=== PATIENT | female | born 1990 | race Hispanic/Latino ===

== ENCOUNTER 2019-12-28 08:52 | Inpatient (IN) | payer OTHER ==
[2019-12-28] MEDS: Lactated Ringer's 1,000 ML IV SCH ×4 (09:30→21:20)
[2019-12-28] MEDS ORDERED: Hydrocortisone Sod Succ/PF 100 mg/2 ml Vial IVP SCH (09:30)
[2019-12-28] MEDS ORDERED: Promethazine HCl 25 MG/ML VIAL IM PRN ×3 (09:38→23:05)
[2019-12-28] MEDS ORDERED: Butorphanol Tartrate 1 MG/ML VIAL SLOW IVP PRN (09:38)
[2019-12-28] MEDS ORDERED: Diphenoxylate HCl/Atropine Tablet PO PRN ×2 (09:38)
[2019-12-28] MEDS ORDERED: NS / Oxytocin 40 units/1000ml 1,000 ML IV PRN (09:38)
[2019-12-28] MEDS ORDERED: Lidocaine 1% (PF) 30 ML VIAL SC PRN (09:38)
[2019-12-28] MEDS ORDERED: Acetaminophen 500 MG TAB PO PRN (09:38)
[2019-12-28] MEDS ORDERED: Ondansetron PF 4 MG/2 ML Vial IVP PRN ×4 (09:38→23:17)
[2019-12-28] MEDS ORDERED: NS w/ Oxytocin 10 units 500 ML IV SCH ×2 (09:38)
[2019-12-28] MEDS ORDERED: Docusate 100 MG CAP PO PRN (09:38)
[2019-12-28] MEDS ORDERED: HYDROcodone/Acetaminophen 5/325 mg Tablet PO PRN ×4 (09:38→23:17)
[2019-12-28] MEDS ORDERED: Misoprostol 200 MCG TAB PR PRN ×2 (09:38→23:17)
[2019-12-28] MEDS ORDERED: Ibuprofen 800 MG TAB PO PRN (09:38)
[2019-12-28] MEDS ORDERED: hydrALAZINE 20 MG/ML VIAL SLOW IVP PRN ×2 (09:38→23:17)
[2019-12-28 09:55] LABS: Hemoglobin 12.7 g/dL (12.0-16.0); Mean Corpuscular HGB CONC 34.6 g/dL (32.0-36.0); Mean Corpuscular Hemoglobin 29.4 pg (27.0-31.0); Mean Platelet Volume 10.2 fL (7.4-10.4); Platelet Count 204 thou/uL (130-400); Red Blood Cell (RBC) Count 4.32 mill/uL (4.20-5.40); White Blood Cell (WBC) Count 10.1 thou/uL (4.8-10.8)
[2019-12-28 10:38] LABS: HBSAg Index 0.19 S/CO (0-0.99); Hep B Surf Ag Non-Reactive S/CO (NonReactive); Syphilis Antibody Nonreactive (Nonreactive); Syphilis Antibody Index 0.03 S/CO (<1.00 Non-Reactive)
[2019-12-28] MEDS: Fentanyl 4 mcg/Bup 0.1% Cadd 100 ML ONE ×2 (10:50→18:30)
[2019-12-28] MEDS ORDERED: EPHEDRINE 25 MG/5 ML SYRINGE SLOW IVP PRN (11:32)
[2019-12-28] MEDS ORDERED: Acetaminophen 325 MG TAB PO PRN ×2 (11:32→23:17)
[2019-12-28] MEDS ORDERED: Naloxone HCl 0.4 mg/ml Vial IVP PRN ×4 (11:32→23:05)
[2019-12-28] MEDS ORDERED: diphenhydrAMINE 50 MG/ML VIAL IVP PRN ×2 (11:32→23:05)
[2019-12-28] MEDS ORDERED: Lactated Ringer's 500 ML IV PRN (11:32)
[2019-12-28] MEDS ORDERED: Communication Order-Pharmacy FS SCH ×2 (11:45→23:15)
[2019-12-28] MEDS ORDERED: methylPREDNISolone Sod Succ/PF 125 MG/2 ML VIAL ONE (12:46)
[2019-12-28] MEDS ORDERED: Hydrocortisone Sod Succ/PF 100 mg/2 ml Vial ONE (12:53)
[2019-12-28 13:20] VITALS: BMI 40.0
[2019-12-28] MEDS ORDERED: Fentanyl 4 mcg/Bup 0.1% Cadd 100 ML ONE (18:00)
[2019-12-28] MEDS ORDERED: NS / Oxytocin 40 units/1000ml 1,000 ML ONE (19:01)
[2019-12-28] MEDS ORDERED: Lidocaine 1% (PF) 30 ML VIAL ONE (19:01)
[2019-12-28] MEDS ORDERED: Carboprost 250 MCG/ML AMP ONE (19:15)
[2019-12-28] MEDS ORDERED: Methylergonovine 0.2 MG/ML VIAL ONE (19:15)
[2019-12-28] MEDS ORDERED: Bicitra 30 ML UDCUP ONE (22:02)
[2019-12-28] MEDS ORDERED: Azithromycin 500 MG VIAL ONE (22:02)
[2019-12-28] MEDS ORDERED: Lidocaine 2% 10 ML INJ ONE (22:06)
[2019-12-28] MEDS ORDERED: Oxytocin 10 UNITS/ML VIAL ONE (22:11)
[2019-12-28] MEDS ORDERED: Bupivacaine PF 0.5% 30 ML VIAL ONE (22:11)
[2019-12-28] MEDS ORDERED: EPHEDRINE 25 MG/5 ML SYRINGE ONE (22:23)
[2019-12-28] MEDS ORDERED: PHENYLEPHRINE-NS 100 MCG/ML 10 ML SYRINGE ONE (22:24)
[2019-12-28] MEDS ORDERED: Fentanyl 100 MCG/2 ML VIAL ONE (22:30)
[2019-12-28] MEDS ORDERED: Meperidine HCl/PF 25 MG/ML VIAL SLOW IVP PRN (23:05)
[2019-12-28] MEDS ORDERED: Ondansetron HCl/PF 4 MG/2 ML Vial IVP PRN (23:05)
[2019-12-28] MEDS ORDERED: Promethazine HCl 25 MG SUPP PR PRN (23:05)
[2019-12-28] MEDS ORDERED: L&D-Morphine 4 MG/ML VIAL SLOW IVP PRN (23:05)
[2019-12-28] MEDS ORDERED: Naloxone HCl 0.4 mg/ml Vial IV PRN (23:05)
[2019-12-28] MEDS ORDERED: HYDROmorphone 2 MG/ML VIAL SLOW IVP PRN (23:05)
[2019-12-28] MEDS ORDERED: Ketorolac Tromethamine 30 MG/ML VIAL IVP SCH (23:15)
[2019-12-28] MEDS ORDERED: Simethicone Chewable 80 MG TAB PO PRN (23:17)
[2019-12-28] MEDS ORDERED: Lanolin Ointment 7 GM TUBE TOP PRN (23:17)
[2019-12-28] MEDS ORDERED: Meperidine HCl/PF 25 MG/ML VIAL IM PRN (23:17)
[2019-12-28] MEDS ORDERED: Zolpidem Tartrate 5 MG TAB PO PRN (23:17)
[2019-12-28] MEDS ORDERED: diphenhydrAMINE 25 MG CAP PO PRN (23:17)
[2019-12-28] MEDS ORDERED: Bisacodyl 10 MG SUPP PR PRN (23:17)
[2019-12-28] MEDS ORDERED: NS / Oxytocin 40 units/1000ml 1,000 ML IV SCH (23:30)
[2019-12-28] MEDS ORDERED: Meperidine HCl/PF 25 MG/ML VIAL ONE (23:38)
[2019-12-29] MEDS ORDERED: Ketamine 50 MG/ML (10ML VIAL) ONE (01:14)
[2019-12-29] MEDS ORDERED: Ketorolac Tromethamine 30 MG/ML VIAL ONE (01:14)
[2019-12-29] MEDS: Ketorolac Tromethamine 30 MG/ML VIAL IVP PRN ×3 (01:16→13:40)
[2019-12-29] MEDS: Lactated Ringer's 1,000 ML IV SCH ×4 (01:17→14:34)
[2019-12-29 06:29] LABS: Hemoglobin 10.3 g/dL (12.0-16.0); Mean Corpuscular HGB CONC 34.1 g/dL (32.0-36.0); Mean Corpuscular Hemoglobin 29.1 pg (27.0-31.0); Mean Corpuscular Volume 85.3 fL (78.0-98.0); Platelet Count 172 thou/uL (130-400); RBC Distribution Width 13.2 % (11.5-14.5); Red Blood Cell (RBC) Count 3.53 mill/uL (4.20-5.40); White Blood Cell (WBC) Count 14.6 thou/uL (4.8-10.8)
[2019-12-29] MEDS ORDERED: Adacel (T-DAP) 0.5 ML SYRINGE IM ONE (09:00)
[2019-12-29] MEDS: Docusate Calcium (SURFAK) 240 MG CAP PO SCH ×2 (10:28→22:15)
[2019-12-29] MEDS: Ferrous Sulfate 325 MG TAB PO SCH ×2 (10:28→22:15)
[2019-12-29] MEDS: Prenatal Vitamin 1 TAB PO SCH (10:28)
[2019-12-29] MEDS ORDERED: Meperidine HCl/PF 25 MG/ML VIAL IM PRN (11:15)
[2019-12-29] MEDS: HYDROcodone/Acetaminophen 5/325 mg Tablet PO PRN ×2 (18:16→22:16)
[2019-12-30] MEDS: Lactated Ringer's 1,000 ML IV SCH ×4 (01:09→22:50)
[2019-12-30] MEDS: Ibuprofen 800 MG TAB PO SCH ×3 (05:06→22:22)
[2019-12-30] MEDS: HYDROcodone/Acetaminophen 5/325 mg Tablet PO PRN ×3 (05:09→18:00)
[2019-12-30] MEDS: Ferrous Sulfate 325 MG TAB PO SCH ×2 (08:01→22:50)
[2019-12-30] MEDS: Docusate Calcium (SURFAK) 240 MG CAP PO SCH ×2 (08:52→22:22)
[2019-12-30] MEDS: Prenatal Vitamin 1 TAB PO SCH (08:52)
[2019-12-31] MEDS: Lactated Ringer's 1,000 ML IV SCH (07:36)
[2019-12-31] MEDS: Ferrous Sulfate 325 MG TAB PO SCH (07:36)
[2019-12-31] MEDS: Ibuprofen 800 MG TAB PO SCH (08:32)
[2019-12-31] MEDS: Prenatal Vitamin 1 TAB PO SCH (08:32)
[2019-12-31] MEDS: Docusate Calcium (SURFAK) 240 MG CAP PO SCH (08:32)
[2019-12-31] MEDS: HYDROcodone/Acetaminophen 5/325 mg Tablet PO PRN (08:58)
[2019-12-31 10:27] VITALS: BP 140/81; TEMP 98.2
--- NOTE | 2019-12-31 11:14 | OP ---
DATE OF PROCEDURE: 12/28/2019 ATTENDING STAFF PHYSICIAN: Jair Ford MD RESIDENT SURGEON: Davis George MD PREOPERATIVE DIAGNOSES: 1. Term intrauterine at 39 and 2/7th weeks. 2. Failure to progress. 3. Arrest of descent. 4. Failed attempt at vacuum-assisted vaginal delivery. 5. Cholestatic jaundice. POSTOPERATIVE DIAGNOSES: 1. Term intrauterine at 39 and 2/7th weeks. 2. Failure to progress. 3. Arrest of descent. 4. Failed attempt at vacuum-assisted vaginal delivery. 5. Cholestatic jaundice. 6. Addition of cephalopelvic disproportion. PROCEDURES PERFORMED: 1. Attempted vacuum-assisted vaginal delivery. 2. Primary low-transverse section. ANESTHESIA: Epidural catheterization. FINDINGS: 1. Arrest of descent at +3 station after attempted vacuum delivery. 2. Significant caput and molding secondary to persistent transverse arrest. 3. Vigorous male , 7 pounds 10 ounces, Apgars 8 and 9. 4. Normal uterus, tubes, and ovaries. 5. Cephalopelvic disproportion-prominent sacrum, android pelvis, narrow outlet. COMPLICATIONS: None. SPECIMENS REMOVED: Cord blood. BLOOD LOSS: Approximately 600 mL. QBL: Equal 590 mL. HISTORY AND INDICATIONS: Mrs. Alicia Kiran is a very pleasant 29-year-old Latin-[place] African female, G1, P0, who is from our clinic for obstetric care. Alicia 's was only complicated by gestational pruritus with confirmed cholestatic jaundice. She was treated with steroids, antepartum and was scheduled for medical induction secondary to increasing liver function tests as well as bile salts. She presented to the office early on the morning of 12/28/2019, complaining of contractions and labor symptoms. Her cervix was found to be 5 to 6 cm dilated, 90% effaced, and -2 station. She was sent to Labor and Delivery in active labor. She was given pulse dose for steroids secondary to receiving steroids in the third trimester of her . She received epidural for anesthesia. The patient subsequently progressed to complete cervical dilation, complete effacement, and +2 station. She pushed for an extended period of time and was found to be significantly asynclitic presentation. The decision was made to proceed with attempted vacuum-assisted vaginal delivery (VAVD) secondary to deep variables with prolonged recovery. There were also two episodes of bradycardia noted. A vacuum was applied at +2 station and an attempt was made to the deliver of the baby by operative vaginal delivery. The procedure was aborted secondary to minimal descent with the operative delivery and 2 pop offs. It was felt that VAVD was no longer safe to proceed secondary to the above noted findings, and decision was made to proceed with primary delivery. The patient and her were counseled at length. Questions were answered to their satisfaction. Anesthesia was notified, and her epidural was bolused. She was taken to the back for primary low- transverse section. heart tones were checked in the OR. The baby was noted to be stable. DESCRIPTION OF PROCEDURE: After thorough consent and counseling, Mrs. Kiran was taken to operating room and adequate level of anesthesia was obtained by her existing epidural. The patient was prepped and draped in usual sterile fashion for delivery. A Campbell had previously been placed in the bladder, which was noted to be draining clear urine. Heart tones were obtained in the OR, noted to be in the 120s. A team time-out was performed per protocol. Attention was then turned to performing the primary low-transverse section. Pfannenstiel incision was made, carried sharply to the fascia, which was also sharply incised. The midline was identified, and the rectus muscles were retracted laterally. The abdominoperitoneal cavity was entered with usual safeguards carried out. A retractor was placed, and a bladder flap was created on the vesicouterine peritoneum. A bladder blade was then placed. A low-transverse incision was made on the well-developed lower uterine segment. Upon entering the amniotic sac, a copious amount of clear amniotic fluid and amnioinfusion was noted. The vertex was noted to be wedged deep in the pelvis and was carefully delivered in an atraumatic fashion. The baby was bulb suctioned on the abdomen. Shoulders and body were then delivered in an atraumatic fashion. Nuchal cord x1 was easily reduced. The cord was doubly clamped and cut. The was handed to the neonatology team in attendance for the delivery. The was a vigorous viable male weighing 7 pounds 10 ounces with Apgars of 8 and 9 obtained at one and five minutes respectively. Cord blood gases were obtained. The placenta was manually removed from the uterus. The uterus was exteriorized, and adequate tone was noted with vigorous massage. The uterine cavity was cleared of any remaining clot and fluid. The low-transverse incision was closed with a running locking ligature of #1 chromic. Multiple [id number] ligatures of #1 chromic were placed to facilitate strength and hemostasis. The incision was carefully inspected and noted to be hemostatic. The peritoneum was reapproximated to the lower segment with a running ligature of 2-0 Monocryl suture. The posterior cul-de-sac and gutters were cleared of clot and fluid. The pelvis was carefully inspected secondary to deep transverse arrest. The sacrum was noted to be extremely prominent inferiorly. There was a very narrow AP diameter. The outlet was noted to be somewhat contracted. The diagnosis of cephalopelvic disproportion (CPD) was given. Seprafilm was applied to the low-transverse incision and to the anterior aspect of the uterus for adhesion prevention. The uterus was returned to the abdomen, and good tone in hemostasis was once again appreciated. Lap, sponge, and needle counts were correct. The peritoneum was then closed with a running ligature of 2-0 Vicryl suture. The rectus muscles were reapproximated in the midline with interrupted ligatures of 2-0 Vicryl and 0 chromic suture. The fascia was then closed with two ligatures of 0 Vicryl suture, which were tied in the midline. Good fascial integrity was appreciated. The incision was then irrigated with copious amount of warm normal saline. The subcutaneous tissue was closed with interrupted ligatures of 2-0 plain. The skin was closed with a subcuticular stitch of 4-0 Monocryl. The incision was then closed with a subcuticular stitch of 4-0 Monocryl and dressed with Dermabond. A pressure dressing and ice packs were subsequently placed. Lap, sponge, and needle counts were correct x3. Estimated blood loss during the surgical procedure was approximately 600 mL. QBL was pending at this time. The patient was awakened and taken to recovery room in good condition. Immediately following surgery, the patient and family were made aware of the surgical procedure and operative findings. We discussed in detail the findings of deep transverse arrest and the indications for proceeding with delivery following an attempted operative vaginal delivery. We had also discussed the findings of cephalopelvic disproportion and the implications for future deliveries. Questions were answered to the patient and family satisfaction. The couples were very appreciative of the care rendered here at [facility] this evening. Mother and baby were doing well postoperatively. The baby was returned to the mother in the recovery room for [id number] contact and . Job ID: [id number] [facility] THROAT HOSPITALMragaret
== END 2019-12-31 13:46 | disposition home or self-care (01) | DRG 787 ==
LOC: L&D 08:52 → 3SW 12-29 02:54 → EDSTATUS 01-03 12:20
PROVIDERS: ADMIT Obstetrics & Gynecology; ATTEND Obstetrics & Gynecology
PROC: 10D00Z1 Extraction of Products of Conception, Low, Open Approach (ICD-10-PCS; principal; 2019-12-28)
DX: O26.893 Other specified pregnancy related conditions, third trimester (principal); R17 Unspecified jaundice; Z3A.39 39 weeks gestation of pregnancy; Z37.0 Single live birth; D62 Acute posthemorrhagic anemia; O90.81 Anemia of the puerperium; O70.1 Second degree perineal laceration during delivery; O66.5 Attempted application of vacuum extractor and forceps; O69.81X0 Labor and delivery complicated by cord around neck, without compression, not applicable or unspecified; O64.0XX0 Obstructed labor due to incomplete rotation of fetal head, not applicable or unspecified
CPT/HCPCS: 36415; 51702; 85027; 86780; 86850; 86900; 86901; 87340; J0456; J0690; J1720; J1885; J2001; J2175; J2210; J2590; J2930; J3010; J3490; S0020

== ENCOUNTER 2023-10-17 05:42 | Emergency (ER) | payer BC ==
[2023-10-17] MEDS ORDERED: Ketorolac Tromethamine 30 MG (1 mL) VIAL ONE (06:20)
[2023-10-17] MEDS ORDERED: Ondansetron ODT 4 MG TAB ONE (06:21)
[2023-10-17 07:24] LABS: Bacteria/HPF None Seen HPF (None Seen); Bilirubin Negative (Negative); Blood, Urine Negative (Negative); CAUTI Indications for Culture Pelvic or flank pain; Clarity Clear (Clear); Glucose, Urine (Dipstick) Normal (Negative); Ketone, Urine Negative (Negative); Leukocyte Negative Leu/uL (Negative); Nitrite Negative (Negative); Protein, Urine (Dipstick) Negative (Neg-Trace); RBC/HPF 0-3 HPF (0-3); Specific Gravity, Urine 1.019 (1.002-1.036); Squamous Epithelial 0-3 HPF (0-3); Urobilinogen Normal mg/dL (Less than 2); WBC/HPF 0-3 HPF (0-3)
[2023-10-17 07:25] LABS: Urine Culture Reflex No No
[2023-10-17 07:37] LABS: #Basophils 0.1 thou/uL (0.0-0.2); #Eosinphils 0.2 thou/uL (0.0-0.7); #Monocytes 0.4 thou/uL (0.11-0.59); #Neutrophils 4.9 thou/uL (1.40-6.50); %Basophils 0.8 % (0.0-1.0); %Eosinophils 2.5 % (0.0-10.0); %Monocytes 4.8 % (0.0-10.0); %Neutrophils 65.8 % (42.0-75.0); Hemoglobin 12.5 g/dL (12.0-16.0); Mean Corpuscular HGB CONC 32.9 g/dL (32.0-36.0); Mean Corpuscular Hemoglobin 27.8 pg (27.0-31.0); Mean Corpuscular Volume 84.4 fl (78.0-98.0); Mean Platelet Volume 10.3 fL (7.4-10.4); Platelet Count 307 10x3/uL (130-400); RBC Distribution Width 13.1 % (11.5-14.5); White Blood Cell (WBC) Count 7.5 10x3/uL (4.8-10.8)
[2023-10-17 08:03] LABS: ALT (SGPT) 27 U/L (8-55); AST (SGOT) 26 U/L (5-34); Albumin 4.2 g/dL (3.5-5.0); Alkaline Phosphatase 101 U/L (40-110); Anion Gap 10 mmol/L (10-20); BUN (Urea Nitrogen) 12 mg/dL (7.0-18.7); Bilirubin, Total 0.2 mg/dL (0.2-1.2); Calc. Creatinine Clearance 0 mL/min (70-130); Calcium 8.8 mg/dL (7.8-10.44); Carbon Dioxide 25 mmol/L (22-29); Chloride 104 mmol/L (98-107); Estimated GFR 120; Globulin 3.2 g/dL (2.4-3.5); Glucose 105 mg/dL (70-105); Lipase 64 U/L (8-78); Potassium 3.9 mmol/L (3.5-5.1); Protein, Total 7.4 g/dL (6.0-8.3); Sodium 135 mmol/L (136-145)
[2023-10-17 08:26] LABS: BHCG - Serum Negative (NEGATIVE); Pregs Control Background? CLEAR/WHITE (CLR/WHITE); Pregs Control Bar Appear? YES (CONTROL BAR)
== END 2023-10-17 08:35 | disposition home or self-care (01) ==
LOC: ERS 05:42
DX: K80.20 Calculus of gallbladder without cholecystitis without obstruction (principal)
CPT/HCPCS: 36415; 76705; 80053; 81001; 83690; 84703; 85025; 93005; 96372; J1885; Q0162